=== PATIENT | female | born 1945 | race Caucasian/White ===

== ENCOUNTER 2016-10-23 15:38 | Inpatient (IN) | payer MEDICARE ==
[~2016-10-23] VITALS: Ht 165.1 cm; Wt 68.5 kg
[2016-10-23] VITALS (8 sets, daily range): BP systolic 69–101; BP diastolic 38–67; PULSE 71–77; RESP 14–22; O2SAT 92–98
[~2016-10-23 15:38] MED LIST: ALPR0.5T8 PO; CHOL200047 PO; DULO60CA42 PO; FISH1CAP16 PO; HYDR-3740 PO; PREG150C PO; PREG50CA PO; SOMA350 PO; TIZA4CAP8 PO; WARF5TAB7 PO
[2016-10-23] MEDS ORDERED: ASPI81TA3 PO (16:14)
[2016-10-23] MEDS ORDERED: PREG75CA PO (16:14)
[2016-10-23] MEDS ORDERED: DOCU240C41 PO (16:14)
[2016-10-23] MEDS ORDERED: 0.9% Sodium Chloride 1,000 ML IV ONE ×2 (16:19→16:50)
--- NOTE | 2016-10-23 16:26 | ED.REPORT ---
HPI-General Illness Date of Service Oct 23, 2016 ED Provider: Cezar Wolff MD Pt is a 71 year old female presenting to the ED after a ground level fall today. Associated symptoms include cold symptoms, numbness in her legs, change in mental status. Denies headache. She states that she was reaching for her pills when she had a syncopal episode and fell out of her bed. Her left the house at 1000 today while the pt was still in bed, then when he returned home he found the pt at 1400 lying on the floor, where she reports she had been laying for 4 hours. Pt's gave her 1 hydrocodone and tizanidine today. Pt had laminectomy August 06 L5-S1. Nursing Notes Stated Complaint: GLF Chief Complaint: Multiple Trauma/Fall Nursing Notes Reviewed: Yes Allergies: Coded Allergies: atorvastatin (Verified Adverse Reaction, Severe, 10/31/15) muscle cramps gabapentin (Verified Adverse Reaction, Severe, 10/31/15) slurred speech/stuttering Scheduled Aspirin Chew (Aspirin Chew) 81 Mg Chew 81 MG PO DAILY Cholecalciferol (Vitamin D3) (Vitamin D3) 2,000 Unit Capsule 2,000 UNIT PO DAILY Docusate Calcium (Stool Softener) 240 Mg Capsule 240 MG PO BID Duloxetine (Cymbalta) 60 Mg Capsule.dr 60 MG PO DAILY Pregabalin (Lyrica) 75 Mg Capsule 75 MG PO TID Tizanidine (Tizanidine) 4 Mg Capsule 4 MG PO BID Scheduled PRN Alprazolam (Alprazolam) 0.5 Mg Tablet 0.5 MG PO TID PRN PRN For Anxiety Carisoprodol (Carisoprodol) 350 Mg Tab 350 MG PO BID PRN PRN For Moderate Pain Hydrocodone-Acetaminophen 10-325 mg (Hydrocodone-Acetaminophen 10-325 mg) 1 Each Tablet 1 TABLET PO Q6H PRN PRN For Pain Miscellaneous Medications Fish Oil/Borage/Flax/Om3,6,9#1 (Butler 3-6-9 Complex Softgel) 400 Mg Capsule 400 MG PO General Time Seen by MD: 16:06 Chief Complaint Other (Change in mental status) Hx Obtained From: Patient, Spouse Arrived By: Ambulance Sudden in Onset?: Yes Onset Occurred: 5 - 8 hours ago Symptom Duration: Since onset Caused by: Fall on ground Severity: Current: No pain currently Severity: Maximum: No pain Recent Healthcare: No recent doctor visit, No recent hospitalization, Previous surgery Similar Sx Previous: No Past Medical History Past Medical History Notes: PCP Dr. Robles Past Medical History Fibromyalgia Spinostenosis Osteoarthritis Past Surgical History Laminectomy August 06 L5-S1 Smoking History Former Smoker Social History Other Social History: Good social support, , Local resident Ambulatory Status Independent Review of Systems Full Review of Systems Ears / Nose / Throat: Reports: Nasal congestion Respiratory: Reports: Non-productive cough Neurologic: Reports: Change LOC, Confusion, Numbness, Denies: Headache Physical Exam Vital Signs Vital Signs Date Time Temp Pulse Resp B/P Pulse Ox O2 Delivery O2 Flow Rate FiO2 10/23/16 17:38 73 16 84/38 93 Nasal Cannula 3 10/23/16 17:20 73 14 70/39 98 Nasal Cannula 3 10/23/16 15:41 36.7 71 22 69/43 92 Nasal Cannula 2 Initial VS: Reviewed Respiratory: Breath sounds normal, Clear to auscultation, No respiratory distress Abdomen / GI: Soft, Non-tender, No guarding, No rebound, No distention Extremities: Vascular intact, Neuro intact, No swelling, No tenderness Skin: Warm, Dry, No cyanosis Psychiatric: Mood/affect normal, Behavior normal, Normal thought content General/Constitutional: Awake, Alert Head / Eyes: PERRL (3mm), EOMI Eye Movement: Positive: Nystagmus horizontal ENT: Atraumatic, Airway patent Mouth: Positive: Mucous membranes dry Neck: Supple, No midline vertebral tend Cardiovascular: Heart rate NL, Regular rhythm, No gallop, No murmurs, No rubs Interpretation & Diagnostics Lab Results Interpretation Result Diagram: 10/23/16 1558 10/23/16 1558 Test 10/23/16 15:58 10/23/16 16:35 10/23/16 17:03 White Blood Count 19.4th/mm3 (3.8-10.1) Red Blood Count 4.06mil/mm3 (3.90-5.20) Hemoglobin 12.7g/dL (12.0-15.6) Hematocrit 40.0% (35.0-46.0) Mean Corpuscular Volume 98.5fL (81-100) Mean Corpuscular Hemoglobin 31.3pg (27.0-35.0) Mean Corpuscular Hemoglobin Concent 31.8% (32.0-37.0) Red Cell Distribution Width 15.4% (12.3-15.4) Platelet Count 360bil/L (150-400) Neutrophils (%) (Auto) 62% (40-74) Lymphocytes (%) (Auto) 6% (14-46) Monocytes (%) (Auto) 2% (4-12) Eosinophils (%) (Auto) 0% (0-5) Basophils (%) (Auto) 0% (0-3) Band Neutrophils % 30% (1-5) Hold Purple Top Tube Received (Received) Prothrombin Time 10.6sec (8.1-12.5) Prothromb Time International Ratio 0.99ratio Hold Blue Top Tube Received (Received) Sodium Level 139mEq/L (134-144) Potassium Level 3.6mEq/L (3.5-5.2) Chloride Level 101mEq/L (97-108) Carbon Dioxide Level 18mmol/L (18-29) Blood Urea Nitrogen 27mg/dL (8-27) Creatinine 1.47mg/dL (0.57-1.00) Estimat Glomerular Filtration Rate 50mL/min (>59) Glucose Level 114mg/dL (60-99) Calcium Level 9.7mg/dL (8.5-10.1) Magnesium Level 2.1mg/dL (1.6-2.6) Total Bilirubin 0.4mg/dL (0.0-1.2) Aspartate Amino Transf (AST/SGOT) 63U/L (0-50) Alanine Aminotransferase (ALT/SGPT) 20U/L (0-32) Alkaline Phosphatase 141U/L (25-165) Troponin T < 0.010ug/L (0.0-0.011) Pro-B-Type Natriuretic Peptide 1144pg/mL (0-301) Total Protein 7.5g/dL (6.4-8.4) Albumin 3.8g/dL (3.4-5.0) Procalcitonin 2.30ng/mL (0.00-0.08) Hold Red Top Tube Received (Received) Hold Bennett Top Tube Received (Received) Lactic Acid Level 2.9mmol/L (0.4-2.0) Urine Color Dark yellow (YELLOW) Urine Appearance Hazy (CLEAR,HAZY) Urine pH 5.5 (5.0-8.0) Urine Specific [place] 1.025 (1.003-1.035) Urine Protein 30mg/dL (NEG,TRACE) Urine Glucose (UA) Negativemg/dL (NEGATIVE) Urine Ketones Negativemg/dL (NEGATIVE) Urine Occult Blood Small (NEGATIVE) Urine Nitrite Negative (NEGATIVE) Urine Bilirubin Negative (NEGATIVE) Urine Urobilinogen Normalmg/dL (NORMAL) Urine Leukocyte Esterase Negative (NEGATIVE) Urine RBC 0-2/hpf (0-2) Urine WBC 0-5/hpf (0-5) Urine Epithelial Cells Few/hpf (NONE-MOD) Urine Crystals None seen (NONE SEEN) Urine Bacteria Few/hpf (NONE-FEW) Urine Hyaline Casts None/lpf (NONE) Urine Granular Casts Occasional (NONE SEEN) Urine Waxy Casts None seen (NONE SEEN) Urine Red Blood Cell Casts None seen (NONE SEEN) Urine White Blood Cell Casts None seen (NONE SEEN) Urine Mucus None seen (None Seen) Urine Trichomonas None seen (NONE SEEN) Urine Yeast None (NONE SEEN) Urinalysis Comment Amorphous sediment Urine Culture Reflexed Not indicated ECG Interpretation Time: 17:00 Interpreted by: ED physician Normal ECG Interpretation: Normal ECG w/ rate of... (71) X-Ray Chest Interpretation Chest Xray Interpretation: MPRESSION: 1. Confluent airspace opacities in the left mid lung and right infrahilar regions. The findings are nonspecific and the differential includes pneumonia as well as pulmonary contusion. Further evaluation may be obtained with CT if clinically indicated. Interpretation / Wet Read by: Interpret - Radiologist CT Head Interpretation IMPRESSION: 1. No acute intracranial abnormality. 2. Mild to moderate chronic white matter small vessel ischemic changes and cerebral volume loss. Dictated by: Jovi Adams M.D. on 10/23/2016 at 17:28 Study: Head CT no contrast CT C-Spine Interpretation IMPRESSION: 1. No fracture or subluxation. 2. Multilevel degenerative changes and mild anterolisthesis redemonstrated in the cervical spine as described. 3. Posterior confluent opacities within the visualized right upper lobe are nonspecific and may represent atelectasis, consolidation, or pulmonary contusion. Dictated by: Jovi Adams M.D. on 10/23/2016 at 17:30 Study type: CT no contrast Interpretation / Wet Read by: Interpret - Radiologist Procedures Central Line Placement Time: 18:56 Consent / Setup / Site Prep: Informed consent provided, Consent from spouse Skin Preparation Agent: Hibiclens - Chlorhexidine Local Anesthesia: Lidocaine 1% Side / Location / Ultrasound: Internal jugular right Catheter / Lumen / Technique: Catheter size (7 fr), Triple lumen, Seldinger technique, Good blood return, Secured w catheter device Central Line Tip Location: Cath tip good position in the SVC Post-Procedure / Complications: Dressing placed, CXR neg for pneumothorax, Tolerated procedure well Re-Eval/Medical Decision Med Decision/Clinical Course 71 year old female presenting with altered mental status and hypotension. Family reports recent cough. Fluids nsx2 L, clinically not hypovolemic, jugular veins full by US. Blood Cx obtained. IV rocephin initally, due to some concern for meiningitis. On re-eval, she is more alert, denies KAN, neck still supple, CXR shows pneumonia. IV Levaquin and Vanco given for ICU pneumonia. Central line placed and norepi drip started. Will admit to ICU on hospitalist service. Time of Eval: 17:54 Patient Status: Condition improved Re-Evaluation/Progress Note: Discussed CT results and plan for admission. Time of Eval: 17:59 Patient Status: Condition improved Re-Evaluation/Progress Note: Pt describes pain in her left leg after the fall. Right leg is sore at baseline after the laminectomy. L leg pain from fall, no shortening, rotation, tolerates PROM well. Still has no KAN. neck supple Consultation : Referral / Consult Name: Bob Cruz MD Consulted With: Hospitalist Call Returned at: 18:10 [employer] Operator: Will see patient, Agrees with plan, Accepts admit Counseled Regarding: Diagnosis, Lab results, Need for follow-up, When/why to return to ED Discharge & Departure Primary Impression: Hypotension Hypotension type: unspecified hypotension type Qualified Code: I95.9 - Hypotension, unspecified Additional Impressions: Change in mental status Altered mental status type: unspecified Qualified Code: R41.82 - Altered mental status, unspecified Sepsis Sepsis type: sepsis due to unspecified organism Qualified Code: A41.9 - Sepsis, unspecified organism Pneumonia Pneumonia type: due to unspecified organism Laterality: unspecified laterality Lung location: unspecified part of lung Qualified Code: B99.9 - Unspecified infectious disease Disposition: ADMITTED TO HOSPITAL Discharge Condition All VS Reviewed: Yes Condition: Improved Referrals: Marquita Ennis (PCP) (Family) Crit Care Except Billable Proc Time Spent: 30-74 minutes Services Performed: Patient management by me, Time spent at bedside, Reviewing test results, Reviewing imaging, Discussing patient care, Documentation in record, Time with fam/surrogate Scribe Attestation Portions of this note were transcribed by Christin Coffey. I, Dr. Wolff personally performed the history, physical exam and medical decision-making; I reviewed and confirmed the accuracy of the information in the transcribed note. Signed by : Kvng Arias, 10/23/2016 at 1815. copies to: Marquita Ennis Donald L MD Oct 23, 2016 16:26 CHRISTIN COFFEY Oct 23, 2016 16:30
[2016-10-23 16:51] LABS: Mean Corpuscular Hemoglobin 31.3 pg (27.0-35.0); Mean Corpuscular Volume 98.5 fL (81-100); Platelet Count 360 bil/L (150-400)
[2016-10-23 16:56] LABS: INR 0.99 ratio
[2016-10-23 17:13] LABS: TROPONIN T < 0.010 ug/L (0.0-0.011)
[2016-10-23 17:17] LABS: APPEARANCE,URINE HAZY (CLEAR,HAZY); COLOR,URINE DARK YELLOW (YELLOW); OCCULT BLOOD,URINE SMALL (NEGATIVE); PH,URINE 5.5 (5.0-8.0); UROBILINOGEN,URINE NORMAL (NORMAL)
[2016-10-23 17:20] LABS: BASOPHILS % (AUTO) 0 % (0-3); EOSINOPHILS % (AUTO) 0 % (0-5); MONOCYTES % (AUTO) 2 % (4-12); NEUTROPHILS % (AUTO) 62 % (40-74)
[2016-10-23 17:22] LABS: Magnesium 2.1 mg/dL (1.6-2.6)
[2016-10-23] MEDS ORDERED: cefTRIAXone Inj 2,000 MG in Dextrose 5% Minibag Plus 50 ML IV ONE (17:30)
--- NOTE | 2016-10-23 17:36 | DRSVH ---
PROCEDURE: CT BRAIN WITHOUT CONTRAST ([id number]) INDICATIONS: Altered mental status, fall TECHNIQUE: Noncontrast 4.5 mm thick angled axial sections acquired from the foramen magnum to the vertex, with c oronal reformats. COMPARISON: None. FINDINGS: Image quality: Excellent. CSF spaces: Basal cisterns are patent. No extra-axial fluid collections. The ventricles are symmet юлия in size and shape. There is dvbh-no-[id number] cerebral volume loss, with resultant ventricular an d sulcal prominence. Brain: No intracranial hemorrhage, mass, or mass effect. There are subcortical, periventricular and deep white matter hypodensities consistent with anug-yj-holmgoni chronic small vessel ischemic duarte es. There is intracranial internal carotid artery atherosclerosis. Skull and face: Calvarium and visualized facial bones appear intact, without suspicious lesions. Sinuses: Visualized sinuses and mastoids are clear. IMPRESSION: 1. No acute intracranial abnormality. 2. Mild to moderate chronic white matter small vessel ischemic changes and cerebral volume loss. Dictated by: Jovi Adams M.D. on 10/23/2016 at 17:28 Approved by: Jovi Adams M.D. on 10/23/2016 at 17:30
--- NOTE | 2016-10-23 17:47 | DRSVH ---
PROCEDURE: CT CERVICAL SPINE WITHOUT CONTRAST ([id number]) INDICATIONS: Altered mental status, fall. TECHNIQUE: Noncontrast 3 mm thick sections acquired from the skull base to the T4 level. Sagittal and coronal r eformats were then constructed. For radiation dose reduction, the following was used: automated exp osure control, adjustment of mA and/or kV according to patient size. COMPARISON: [facility], CT, CHEST W/O CONTRAST, 01/12/2013, 12:52. FINDINGS: Image quality: Excellent. Bones: No fractures or dislocations. There is minimal anterolisthesis at C4-C5 and T5-T6 which appe ar unchanged. There is multilevel disc space narrowing including moderate cerebral narrowing at C6-C 7 redemonstrated. There is mild multilevel uncovertebral joint arthropathy. Facet arthropathy is al so demonstrated in the mid and lower cervical spine. Visualized superior ribs are intact. Soft tissues: Prevertebral soft tissues are normal in thickness. No paravertebral hematomas. No ap ical pneumothoraces. Within the visualized right lobe, there are posterior confluent opacities which may represent atelectasis, consolidation, or contusion. IMPRESSION: 1. No fracture or subluxation. 2. Multilevel degenerative changes and mild anterolisthesis redemonstrated in the cervical spine as described. 3. Posterior confluent opacities within the visualized right upper lobe are nonspecific and may repr esent atelectasis, consolidation, or pulmonary contusion. Dictated by: Jovi Adams M.D. on 10/23/2016 at 17:30 Approved by: Jovi Adams M.D. on 10/23/2016 at 17:41
[2016-10-23] MEDS ORDERED: levoFLOXacin Inj 750 MG in IV Premix 1 EACH IV ONE (18:10)
--- NOTE | 2016-10-23 18:57 | DRSVH ---
PROCEDURE: X-RAY CHEST ONE VIEW, PORTABLE ([id number]) INDICATIONS: Hypotension and cough. Status post fall. TECHNIQUE: One view of the chest was acquired. COMPARISON: None. FINDINGS: Surgical changes and devices: None. Lungs and pleura: No pleural effusions or pneumothorax. There are low lung volumes. There are conf luent opacities between the left midlung zone. There are also increased right infrahilar opacities. Mediastinum: Mediastinal contours appear prominent likely due to lobe lines and portable technique. Heart size is at upper limits of normal. Bones and chest wall: No suspicious bony lesions. Overlying soft tissues appear unremarkable. IMPRESSION: 1. Confluent airspace opacities in the left mid lung and right infrahilar regions. The findings are nonspecific and the differential includes pneumonia as well as pulmonary contusion. Further evaluat ion may be obtained with CT if clinically indicated. Dictated by: Jovi Adams M.D. on 10/23/2016 at 18:49 Approved by: Jovi Adams M.D. on 10/23/2016 at 18:51
--- NOTE | 2016-10-23 19:17 | DRSVH ---
PROCEDURE: X-RAY CHEST ONE VIEW, PORTABLE ([id number]) INDICATIONS: Central line TECHNIQUE: One view of the chest was acquired. COMPARISON: [facility], CR, XR CHEST 1VW (PORTABLE), 10/23/2016, 17:11. FINDINGS: Surgical changes and devices: There is a new right internal jugular central venous catheter with the tip extending into the superior vena cava. Lungs and pleura: No pleural effusions or pneumothorax. There is improved aeration with persistent confluent left peripheral air space opacities. There is pulmonary vascular prominence suggesting mil d edema. Linear left basilar opacities consistent with atelectasis or scarring. Mediastinum: Mediastinal contours appear unchanged. Heart size is normal. Bones and chest wall: No suspicious bony lesions. Overlying soft tissues appear unremarkable. IMPRESSION: 1. No evidence of pneumothorax. 2. Persistent confluent left basilar opacities peripherally are nonspecific but may represent pneumo joss or pulmonary contusion. 3. Pulmonary vascular prominence suggesting mild edema. Dictated by: Jovi Adams M.D. on 10/23/2016 at 19:09 Approved by: Jovi Adams M.D. on 10/23/2016 at 19:11
[2016-10-23] MEDS: Norepineph 8,000 mCg/250 mL NS 8,000 MCG in IV Premix 1 EACH IV SCH (19:32)
[2016-10-23] MEDS: 0.9% Sodium Chloride 1,000 ML IV SCH (19:40)
[2016-10-23] MEDS ORDERED: LORazepam 0.5 mg Tablet PO ONE (19:40)
[2016-10-23] MEDS ORDERED: Alum-Mag Hydrox-Simeth 30 mL Suspension PO PRN (19:40)
[2016-10-23] MEDS ORDERED: DOCU250C2 PO (19:56)
[2016-10-23] MEDS ORDERED: CHOL10008 PO (19:56)
[2016-10-23] MEDS ORDERED: TOPI-59 PO (19:56)
--- NOTE | 2016-10-23 20:55 | PCM.HPMED ---
Subjective Date of Service Oct 23, 2016 Primary Provider: Admitting Physician: Bob Cruz MD Primary Care Physician: Marquita Ennis Attending Physician: Bob Cruz MD Admit Status: From the Emergency Department, Full Admit, Critical Care Chief Complaint: Syncope, pna and sepsis History of Present Illness: 71 female ill for several days with a cough, productive as well as progressive anorexia and weakness. She got up from bed and fell on floor this AM. Found 4 hours later. No recall of event. EMS brought her to ED, where she was hypotensive and received 2 L NS with persistent hypotension. A right IJ central line was placed and norepinephrine was started. MAP is now 65. No nausea, vomiting, diarrhea. No abdomen pauin. No dyspnea or chest pain. No fevers, chills or rigors. She denies fevers or chills, no rigors. No recent dyspnea, pleuritic pain, hemoptysis, or sustained chest pain. No abdomen pain. Review of Systems: All else reviewed and negative except as noted in H and P. Allergies Coded Allergies: atorvastatin (Verified Adverse Reaction, Severe, 10/23/16) muscle cramps gabapentin (Verified Adverse Reaction, Severe, 10/23/16) slurred speech/stuttering Home Medications Aspirin Chew (Aspirin Chew) 81 Mg Chew 81 MG PO DAILY Cholecalciferol (Vitamin D3) (Vitamin D3) 2,000 Unit Capsule 2,000 UNIT PO DAILY Docusate Calcium (Stool Softener) 240 Mg Capsule 240 MG PO BID Duloxetine (Cymbalta) 60 Mg Capsule.dr 60 MG PO DAILY Pregabalin (Lyrica) 75 Mg Capsule 75 MG PO TID Tizanidine (Tizanidine) 4 Mg Capsule 4 MG PO BID Scheduled PRN Alprazolam (Alprazolam) 0.5 Mg Tablet 0.5 MG PO TID PRN PRN For Anxiety Carisoprodol (Carisoprodol) 350 Mg Tab 350 MG PO BID PRN PRN For Moderate Pain Hydrocodone-Acetaminophen 10-325 mg (Hydrocodone-Acetaminophen 10-325 mg) 1 Each Tablet 1 TABLET PO Q6H PRN PRN For Pain PMH 1. Fibromyalgia 2. Chronic pain syndrome 3. Anxiety Family History Negative for fibromyalgia Social History Hx Alcohol Use: Yes ("a glass of wine once a month") Hx Substance Use: No Hx Tobacco Use: No Smoking Status: Former Smoker Living Arrangement: with Family Exam Vital Signs Vital Sign - Last Date Time Temp Pulse Resp B/P Pulse Ox O2 Delivery O2 Flow Rate FiO2 10/23/16 20:09 73 17 101/67 94 Nasal Cannula 3 10/23/16 15:41 36.7 Exam alert and oriented by 3, no distress, fluent speech Normal skull, nose and ears Normal mouth, no droop. Anicteric sclera, normal pupils. Lungs clear Heart regular Normal neck, thyroid and no adenopathy Abdomen soft, NT. No leg edema No skin rash, ecchymosis Normal joints Normal muscle strength Dry mouth. Lab and Diagnostics Result Diagram: 10/23/16 1558 10/23/16 1558 X-Rays, CTs and MRIs CXR : L base pna Brain CT neg C spine CT neg Assessment & Plan 1. CAP (pna), POA. Cefepime until off NE, then ceftriaxone and azithro. 2. Septic shock, POA. Protocol with IVF, serial lactic acid, and norepinephrine to keep MAP above 65. 3. GI and DVT prophylaxis (critically ill) 4. Fibromyalgia, POA. resume usual meds in AM when improved. Full code, inpt status, over 2 nights anticipated. Pain Evaluation: Adequate Pain Control Resuscitation Status: CPR: Attempt Resuscitation Time spent 60 min Bob Cruz MD Oct 23, 2016 20:55
[2016-10-24] VITALS (7 sets, daily range): BP systolic 108–137; BP diastolic 43–95; PULSE 72–92; RESP 15–25; O2SAT 96–98
[2016-10-24] MEDS: 0.9% Sodium Chloride 1,000 ML IV SCH ×4 (01:04→17:40)
--- NOTE | 2016-10-24 05:34 | NUR ---
admit note: Pt received into room 2019 at 2000 per cart from ED companied by family. Pt was alert and orientated to person,place and time. denies any pain on O2 at 4L/M per NC. Pt slide over to bed with use of slide board and assist x4. Pt has small bruise to right lateral hip and dime size abraision to right knee. Wilde in place and rt IJ intact. Levophed infusing at .05 mcg/kg/min. Monitor shows sinus rhythm in 70-80s.
--- NOTE | 2016-10-24 05:52 | NUR ---
sedation/agitation: Pt was agitated at start of shift order was obtained for 1mg IV ativan. Pt calmed down and was resting well through out the night until 0500 after pt received bath and having BM. Pt become tachycardic and restless.
[2016-10-24] MEDS: cefTRIAXone Inj 2,000 MG in Dextrose 5% Minibag Plus 50 ML IV SCH (09:05)
[2016-10-24] MEDS ORDERED: oxyCODONE-Acetamin 5-325 mg Tablet PO PRN (11:20)
[2016-10-24] MEDS: Ondansetron 2 mg/mL 2 mL Inj IVPUSH PRN (11:37)
--- NOTE | 2016-10-24 12:43 | NUR ---
Pt nauseated this am Pt has had 2 episodes of diarrhoea. She also complained of nausea, and had a large emisis at approx 1100hrs. Colace held due to diarrhoea and Vit D held as pt is complaining of nausea.
[2016-10-24] MEDS ORDERED: Sodium Chloride LOK Flush 10 mL Syringe IVFLUSH PRN ×2 (14:50)
--- NOTE | 2016-10-24 15:44 | PCM.PNMED ---
Subjective Date of Service Oct 24, 2016 Subjective 71-year-old woman with several days of lower respiratory tract symptoms presents with pneumonia and rhabdomyolysis secondary to syncope. She reports feeling much better today. Family notes that her mental status is not back to normal. Continues to have mild to moderate cough with minimal phlegm. Appetite is good. She has not ambulated. Exam Vital Signs Vital Sign - Last Date Time Temp Pulse Resp B/P Pulse Ox O2 Delivery O2 Flow Rate FiO2 10/24/16 11:30 Supplement Oxygen 10/24/16 11:30 37.1 92 25 117/57 97 4.00 Intake and Output 10/23/16 10/23/16 10/24/16 Cumulative From/Thru 15:00 23:00 07:00 10/23/16 15:41 - 10/24/16 05:32 Intake Total 2000 ml 2848 ml 4848 ml Output Total 1100 ml 1100 ml Balance 2000 ml 1748 ml 3748 ml Intake Oral 500 ml 500 ml IV Total 2000 ml 2348 ml 4348 ml Output Urine Total 1100 ml 1100 ml Exam General: Elderly woman sitting in bed, no acute distress HEENT: sclerae anicteric, oral mucosa moist Neck: no JVD Chest: Bibasilar crackles L>R Cardiac: S1S2, no murmur Abdomen: BS normal, non-tender Extremities: No edema Neuro: A&O, cranial nerves symmetric, motor tone, coordination normal IVs and Medications Medications Reviewed: Medications were reviewed in detail Lab and Diagnostics Procalcitonin 2.3 Lactic acid 2.9, 0.9 CPK 11,693 Result Diagram: 10/23/16 1558 10/24/16 0830 X-Rays, CTs and MRIs PROCEDURE: X-RAY CHEST ONE VIEW, PORTABLE ([id number]) IMPRESSION: 1. Confluent airspace opacities in the left mid lung and right infrahilar regions. The findings are nonspecific and the differential includes pneumonia as well as pulmonary contusion. Further evaluation may be obtained with CT if clinically indicated. Dictated by: Jovi Adams M.D. on 10/23/2016 at 18:49 PROCEDURE: CT CERVICAL SPINE WITHOUT CONTRAST ([id number]) IMPRESSION 1. No fracture or subluxation. 2. Multilevel degenerative changes and mild anterolisthesis redemonstrated in the cervical spine as described. 3. Posterior confluent opacities within the visualized right upper lobe are nonspecific and may represent atelectasis, consolidation, or pulmonary contusion. Dictated by: Jovi Adams M.D. on 10/23/2016 at 17:30 PROCEDURE: CT BRAIN WITHOUT CONTRAST ([id number]) IMPRESSION: 1. No acute intracranial abnormality. 2. Mild to moderate chronic white matter small vessel ischemic changes and cerebral volume loss. Dictated by: Jovi Adams M.D. on 10/23/2016 at 17:28 PROCEDURE: X-RAY CHEST ONE VIEW, PORTABLE ([id number]) IMPRESSION: 1. No evidence of pneumothorax. 2. Persistent confluent left basilar opacities peripherally are nonspecific but may represent pneumonia or pulmonary contusion. 3. Pulmonary vascular prominence suggesting mild edema. Dictated by: Jovi Adams M.D. on 10/23/2016 at 19:09 . Assessment & Plan 71-year-old woman with several days of fever dyspnea anorexia and cough complicated by syncopal episode with approximately 4 hours of immobilization on floor. #. Sepsis, acute. Patient presented with BP 69/43, RR 22, WBC 19 K with bandemia, O2 saturation 92% on 2 L. Elevated lactate 2.9. She experienced syncope likely due to dehydration and orthostatic hypotension. Pressures responded to fluid resuscitation. Local infection is pneumonia. - Aggressive fluid resuscitation with mean arterial pressure greater than 65 mmHg - Monitor urinary output to maintain greater than 0.5 ML/KG/HR. #. Community-acquired pneumonia, acute. Chest x-ray compatible with bilateral pneumonia, possibly pulmonary edema. Overall symptoms appear to be infectious with profound leukocytosis, bandemia and elevated procalcitonin. Respiratory viral panel is negative. MRSA swab is negative. - Ceftriaxone plus levofloxacin - Oxygen as needed - IV hydration, and push by mouth hydration #. Acute diastolic congestive heart failure. ProBNP is 1144 on admission. Chest x-ray also compatible with bilateral pulmonary congestion. Likely diastolic CHF due to stress of respiratory infection. - Follow clinically at present without diuretics during rehydration - Controlled blood pressure maintained good oxygenation #t. Acute kidney injury. Likely related to dehydration SG 1.025. - Follow with hydration #. Rhabdomyolysis, acute. X-ray 4 hours immobilized on floor. Elevated CPK associated with mild right leg pain. Urinary dipstick is small for occult blood. Moderate acute kidney injury, but likely related to dehydration rather than myoglobin. - Maintain good IV and oral hydration. - Follow daily BMP - Physical therapy consult to ambulate patient. #. Chronic lower back pain, opioid dependent. - Continue oral oxycodone, parenteral opioid. - Continue her duloxetine, tizanidine and pregabalin; monitor for signs of polypharmacy and toxic encephalopathy #. Anxiety disorder, chronic. - Continue her usual 0.5 mg 3 times a day alprazolam. Venous thromboembolism: Subcutaneous Lovenox Pain Evaluation: Adequate Pain Control GI Prophylaxis: Not indicated VTE Prophylaxis: Sub-Q Enoxaparin VTE Mechanical Devices: Intermittant Pneumatic CD Resuscitation Status: CPR: Attempt Resuscitation Time spent 40 minutes aSrmad Solano MD Oct 24, 2016 15:44
[2016-10-24] MEDS ORDERED: KCl 40 mEq/100 mL Premix (K 3 - 3.7 & Creat < 2) IV ONE (18:20)
[2016-10-24] MEDS: Norepineph 8,000 mCg/250 mL NS 8,000 MCG in IV Premix 1 EACH IV SCH (18:55)
--- NOTE | 2016-10-24 18:55 | NUR ---
P: Resp, Hemodynamics, Neuro, GI, Skin,Social I,E: Pt remains on 4l NC and sats in the high 90's. She has a moist productive cough and sputum was sent this am. Pt BP has been stable today, with sys BP's in the 110's to 120's. Pt has been in SR 80's to 90's. UOP brisk via valladares cath. Pt has not had any further episodes of diarrhoea this afternoon. K rider is hanging for K 3.3. Pt has bruising on her right hip from her fall at home and she has a small abrasion on her right knee that is healing well. Pt is on fall precautions here and has been instructed multiple times to use the call light for assistance. She has been doing that this afternoon, but she does remain a little confused at times and may forget overnight. Naga is on the bed and working. Pt continues to be a little confused about things but she acknowledges this and is usually able to identify her errors tonight. Family have been here on and off today and are good support.
[2016-10-24] MEDS: ALPRAZolam 0.5 mg Tablet PO PRN (21:05)
[2016-10-25] VITALS (8 sets, daily range): BP systolic 104–150; BP diastolic 50–82; PULSE 70–95; RESP 19–27; O2SAT 92–97
[2016-10-25] MEDS: 0.9% Sodium Chloride 1,000 ML IV SCH ×4 (03:16→20:48)
[2016-10-25 04:22] LABS: Mean Corpuscular Hemoglobin 29.8 pg (27.0-35.0); Mean Corpuscular Volume 99.3 fL (81-100)
--- NOTE | 2016-10-25 04:54 | NUR ---
Respiratory Pt on 3L NC at beginning of shift, able to wean from 4L NC with SpO2 in high 90s. Pt instructed to keep oxygen and oximeter on for nighttime to allow continued weaning and monitoring as tolerated. However, pt falls asleep repeatedly pulling off oxygen and oximeter; when reassessed, SpO2 80% on RA. NC reapplied and returned to 4L NC to compensate for periods without oxygen. Pt sleeping throughout shift, no c/o pain or dyspnea. AOx3 but has occasional rambling speech and disorientation. Participatory in care and follows commands. VSS. Tele SR 70s.
[2016-10-25] MEDS: cefTRIAXone Inj 2,000 MG in Dextrose 5% Minibag Plus 50 ML IV SCH (08:35)
[2016-10-25] MEDS: DULoxetine 30 mg DR Capsule PO SCH (08:43)
--- NOTE | 2016-10-25 15:45 | NUR ---
Social Work-initial assessment: Data:See initial assessment. Pt is a 71 y/o female who was admitted on 10/23/16 for Sepsis and Pneumonia per H&P. Pt's insurance is [employer] and PCP is Marquita Ennis MD. EMR Reviewed. Pt's readmission score is 4-high risk. SW met with pt to discuss discharge planning, SW role explained and initial assessment complete. Pt is alert and oriented x3. Pt resides at home with spouse/NOK, Joseph Prater [phone], in a single level home with four steps to enter where pt remains independent with basic ADLs. Pt ambulates independently at baseline and does drive if needed. Pt has no HH or SNF history. Pt has completed DPOA/ advanced directive and SW requested a copy. Pt has no jail care or VA benefits. SW discuss HH services and patient interested in HH if needed after discharge. SW provided patient with a choice list, but patient does not have a HH preference if HH is needed. PT evaluation ordered. Pt's family to provide transport home at discharge. SW provided phone number and plan on white board in room. SW will continue to follow. Plan: Pt to likely discharge home with hh if needed. PT evaluation is pending. Pt's family is supportive. SW will continue to follow. Dimitris Becerra LMSW, RYAN Addendum: 10/25/16 at 1557 by DIMITRIS BECERRA SS Amended: Links added.
[2016-10-25] MEDS: Norepineph 8,000 mCg/250 mL NS 8,000 MCG in IV Premix 1 EACH IV SCH (16:16)
--- NOTE | 2016-10-25 16:33 | PCM.PNMED ---
Subjective Date of Service Oct 25, 2016 Subjective 71-year-old woman with several days of lower respiratory tract symptoms presents with pneumonia and rhabdomyolysis secondary to syncope. She reports feeling much better today. Family notes that her mental status is not back to normal. Continues to have moderate cough with phlegm. Appetite is good. She has not ambulated. Continues to feel bruised on her right hip and thigh. Exam Vital Signs Vital Sign - Last Date Time Temp Pulse Resp B/P Pulse Ox O2 Delivery O2 Flow Rate FiO2 10/25/16 16:19 83 24 104/56 95 Nasal Cannula 3.00 10/25/16 08:32 37.1 Intake and Output 10/24/16 10/24/16 10/25/16 Cumulative From/Thru 15:00 23:00 07:00 10/23/16 15:41 - 10/25/16 06:45 Intake Total 2600 ml 1727 ml 9175 ml Output Total 2100 ml 800 ml 4000 ml Balance 500 ml 927 ml 5175 ml Intake Oral 500 ml 400 ml 1400 ml IV Total 2100 ml 1327 ml 7775 ml Output Urine Total 2100 ml 800 ml 4000 ml # Bowel Movements 2 2 Exam General: Elderly woman sitting in bed, coughing frequently HEENT: sclerae anicteric, oral mucosa moist Neck: no JVD Chest: Bibasilar crackles Cardiac: S1S2, no murmur Abdomen: BS normal, non-tender Extremities: No edema Neuro: A&O, cranial nerves symmetric, motor tone, coordination normal IVs and Medications Medications Reviewed: Medications were reviewed in detail Lab and Diagnostics Result Diagram: 10/25/16 04110/25/16 0410 Microbiology Respiratory viral panel negative Sputum no growth blood cultures no growth Pneumococcus antigen negative X-Rays, CTs and MRIs PROCEDURE: X-RAY CHEST ONE VIEW, PORTABLE ([id number]) IMPRESSION: 1. Confluent airspace opacities in the left mid lung and right infrahilar regions. The findings are nonspecific and the differential includes pneumonia as well as pulmonary contusion. Further evaluation may be obtained with CT if clinically indicated. Dictated by: Jovi Adams M.D. on 10/23/2016 at 18:49 PROCEDURE: CT CERVICAL SPINE WITHOUT CONTRAST ([id number]) IMPRESSION 1. No fracture or subluxation. 2. Multilevel degenerative changes and mild anterolisthesis redemonstrated in the cervical spine as described. 3. Posterior confluent opacities within the visualized right upper lobe are nonspecific and may represent atelectasis, consolidation, or pulmonary contusion. Dictated by: Jovi Adams M.D. on 10/23/2016 at 17:30 PROCEDURE: CT BRAIN WITHOUT CONTRAST ([id number]) IMPRESSION: 1. No acute intracranial abnormality. 2. Mild to moderate chronic white matter small vessel ischemic changes and cerebral volume loss. Dictated by: Jovi Adams M.D. on 10/23/2016 at 17:28 PROCEDURE: X-RAY CHEST ONE VIEW, PORTABLE ([id number]) IMPRESSION: 1. No evidence of pneumothorax. 2. Persistent confluent left basilar opacities peripherally are nonspecific but may represent pneumonia or pulmonary contusion. 3. Pulmonary vascular prominence suggesting mild edema. Dictated by: Jovi Adams M.D. on 10/23/2016 at 19:09 . Assessment & Plan 71-year-old woman with several days of fever dyspnea anorexia and cough complicated by syncopal episode with approximately 4 hours of immobilization on floor. #. Sepsis, acute. Patient presented with BP 69/43, RR 22, WBC 19 K with bandemia, O2 saturation 92% on 2 L. Elevated lactate 2.9. She experienced syncope likely due to dehydration and orthostatic hypotension. Pressures responded to fluid resuscitation. Local infection is pneumonia. She received Aggressive fluid resuscitation with mean arterial pressure greater than 65 mmHg. - Reduce IV fluids and switch to oral hydration - Monitor urinary output to maintain greater than 0.5 ML/KG/HR. #. Community-acquired pneumonia, acute. Chest x-ray compatible with bilateral pneumonia, possibly pulmonary edema. Overall symptoms appear to be infectious with profound leukocytosis, bandemia and elevated procalcitonin. Respiratory viral panel is negative. MRSA swab is negative. She continues to require 3 L nasal cannula oxygen with O2 sat 92-95% - Ceftriaxone plus azithromycin - Oxygen as needed - IV hydration, and push by mouth hydration #. Acute diastolic congestive heart failure. ProBNP is 1144 on admission. Chest x-ray also compatible with bilateral pulmonary congestion. Likely diastolic CHF due to stress of respiratory infection. - Follow clinically at present without diuretics during rehydration - Controlled blood pressure maintained good oxygenation #t. Acute kidney injury. Serum creatinine 1.47 on admission has declined to 0.79 within 2 days. Likely related to dehydration SG 1.025. No signs of rhabdomyolysis could be injury. - Follow IMP occasionally #. Rhabdomyolysis, acute. X-ray 4 hours immobilized on floor. Elevated CPK associated with mild right leg pain. Urinary dipstick is small for occult blood. Moderate acute kidney injury, but likely related to dehydration rather than myoglobin. - Maintain good IV and oral hydration. - Follow daily BMP - Physical therapy consult to ambulate patient. #. Chronic lower back pain, opioid dependent. - Continue oral oxycodone, parenteral opioid. - Continue her duloxetine, tizanidine and pregabalin; monitor for signs of polypharmacy and toxic encephalopathy #. Anxiety disorder, chronic. - Continue her usual 0.5 mg 3 times a day alprazolam. Venous thromboembolism: Subcutaneous Lovenox Disposition: When O2 requirement is essentially normal we will switch to by mouth antibiotics and discharge to home. Likely 10/27, possibly 10/26 GI Prophylaxis: Not indicated VTE Prophylaxis: Sub-Q Enoxaparin VTE Mechanical Devices: Intermittant Pneumatic CD Resuscitation Status: CPR: Attempt Resuscitation Time spent 35 minutes Sarmad Solano MD Oct 25, 2016 16:33
--- NOTE | 2016-10-25 19:13 | NUR ---
Hypotension/diarrhea Patient's BP 96/53 and then later 98/49. Pt states slight headache and dizziness but stated "I'm just very tired." A&O. Follows commands. Pt rested and BP 104/56 asymptomatic. Pt had 1 loose incontinent BM this shift.
[2016-10-25] MEDS: ALPRAZolam 0.5 mg Tablet PO PRN (20:47)
[2016-10-26] VITALS (9 sets, daily range): BP systolic 114–163; BP diastolic 59–95; PULSE 84–92; RESP 16–24; O2SAT 92–97
[2016-10-26] MEDS: 0.9% Sodium Chloride 1,000 ML IV SCH (03:44)
[2016-10-26 04:05] LABS: Mean Corpuscular Hemoglobin 30.2 pg (27.0-35.0); Mean Corpuscular Volume 98.7 fL (81-100)
--- NOTE | 2016-10-26 05:31 | NUR ---
Respiratory Pt on 4L NC at HS, SpO2 94-96%, denies dyspnea. While at rest, attempted to wean pt to 3L NC; SpO2 90-91%. Returned to 4L NC, SpO2 approx. 92%. VSS. Tele SR 90s.
[2016-10-26] MEDS ORDERED: KCl 40 mEq/100 mL Premix (K 3 - 3.7 & Creat < 2) IV ONE (05:40)
[2016-10-26] MEDS: cefTRIAXone Inj 2,000 MG in Dextrose 5% Minibag Plus 50 ML IV SCH (07:24)
[2016-10-26] MEDS: DULoxetine 30 mg DR Capsule PO SCH (07:36)
[2016-10-26] MEDS: Potassium Chloride 20 mEq SR Tablet PO SCH ×2 (09:21→19:48)
[2016-10-26] MEDS: Lactobacillus Rhamnosus 10 Bil Unit Capsule PO SCH ×2 (12:09→18:04)
--- NOTE | 2016-10-26 13:11 | NUR ---
Evaluation completed. Please go to "Notes" then click on "Assessments and Notes" (bottom left corner of screen). Then select appropriate discipline tab on top of screen.
--- NOTE | 2016-10-26 15:07 | NUR ---
Temp/Activity Patient had mild temp of 38.7 and complaining of chills and fatigue. Tylenol given with good effect, temp down to 37.3 and patient resting with eyes closed in bed.
--- NOTE | 2016-10-26 16:03 | PCM.PNMED ---
Subjective Date of Service Oct 26, 2016 Subjective 71-year-old woman with several days of lower respiratory tract symptoms presents with pneumonia and rhabdomyolysis secondary to syncope. She reports feeling much better today. Family notes that her mental status is not back to normal. Low-grade fever last night. Continues to have moderate cough with minimal phlegm. She feels weak. Appetite is poor. She has not ambulated. Continues to feel bruised on her right hip and thigh, but improving. Exam Vital Signs Vital Sign - Last Date Time Temp Pulse Resp B/P Pulse Ox O2 Delivery O2 Flow Rate FiO2 10/26/16 15:18 37.1 85 16 148/70 95 Nasal Cannula 3.00 Intake and Output 10/25/16 10/25/16 10/26/16 Cumulative From/Thru 15:00 23:00 07:00 10/23/16 15:41 - 10/26/16 05:58 Intake Total 2577 ml 1687 ml 21537 ml Output Total 1200 ml 1450 ml 6650 ml Balance 1377 ml 237 ml 6789 ml Intake Oral 1100 ml 237 ml 2737 ml IV Total 1477 ml 1450 ml 79380 ml Output Urine Total 1200 ml 1450 ml 6650 ml # Bowel Movements 2 Exam General: Elderly woman sitting in bed, coughing occasionally HEENT: sclerae anicteric, oral mucosa moist Neck: no JVD Chest: Bibasilar crackles, no dullness Cardiac: S1S2, regular Abdomen: BS normal, non-tender Extremities: Tr+ edema Neuro: A&O, cranial nerves symmetric, motor tone, coordination normal IVs and Medications Medications Reviewed: Medications were reviewed in detail Lab and Diagnostics Result Diagram: 10/26/16 0355 10/26/16 1000 Microbiology Respiratory viral panel negative Sputum no growth blood cultures no growth Pneumococcus antigen negative X-Rays, CTs and MRIs PROCEDURE: X-RAY CHEST ONE VIEW, PORTABLE ([id number]) IMPRESSION: 1. Confluent airspace opacities in the left mid lung and right infrahilar regions. The findings are nonspecific and the differential includes pneumonia as well as pulmonary contusion. Further evaluation may be obtained with CT if clinically indicated. Dictated by: Jovi Adams M.D. on 10/23/2016 at 18:49 PROCEDURE: CT CERVICAL SPINE WITHOUT CONTRAST ([id number]) IMPRESSION 1. No fracture or subluxation. 2. Multilevel degenerative changes and mild anterolisthesis redemonstrated in the cervical spine as described. 3. Posterior confluent opacities within the visualized right upper lobe are nonspecific and may represent atelectasis, consolidation, or pulmonary contusion. Dictated by: Jovi Adams M.D. on 10/23/2016 at 17:30 PROCEDURE: CT BRAIN WITHOUT CONTRAST ([id number]) IMPRESSION: 1. No acute intracranial abnormality. 2. Mild to moderate chronic white matter small vessel ischemic changes and cerebral volume loss. Dictated by: Jovi Adams M.D. on 10/23/2016 at 17:28 PROCEDURE: X-RAY CHEST ONE VIEW, PORTABLE ([id number]) IMPRESSION: 1. No evidence of pneumothorax. 2. Persistent confluent left basilar opacities peripherally are nonspecific but may represent pneumonia or pulmonary contusion. 3. Pulmonary vascular prominence suggesting mild edema. Dictated by: Jovi Adams M.D. on 10/23/2016 at 19:09 . Assessment & Plan 71-year-old woman with several days of fever dyspnea anorexia and cough complicated by syncopal episode with approximately 4 hours of immobilization on floor. Now day #3 of antibiotics for community-acquired pneumonia. #. Sepsis, acute. Patient presented with BP 69/43, RR 22, WBC 19 K with bandemia, O2 saturation 92% on 2 L. Elevated lactate 2.9. She experienced syncope likely due to dehydration and orthostatic hypotension. Pressures responded to fluid resuscitation. Local infection is pneumonia. She received Aggressive fluid resuscitation with mean arterial pressure greater than 65 mmHg. fever leukocytosis gradually improving. - Reduce IV fluids, and switch to oral hydration - Monitor urinary output to maintain greater than 0.5 ML/KG/HR. #. Community-acquired pneumonia, acute. Chest x-ray compatible with bilateral pneumonia, possibly pulmonary edema. Overall symptoms appear to be infectious with profound leukocytosis, bandemia and elevated procalcitonin. Respiratory viral panel is negative. MRSA swab is negative. She continues to require 3 L nasal cannula oxygen with O2 sat 92-95% - Ceftriaxone plus azithromycin x 5 days - Titrate Oxygen off , as tolerated - IV hydration, and push by mouth hydration - Mobilized patient to enhance pulmonary toilet #. Acute diastolic congestive heart failure. ProBNP is 1144 on admission. Chest x-ray also compatible with bilateral pulmonary congestion. Likely diastolic CHF due to stress of respiratory infection. - Reduce IV fluids and Initiate oral Lasix diuresis now that she is in recovery phase - Control blood pressure - maintained good oxygenation #t. Acute kidney injury. Serum creatinine 1.47 on admission has declined to 0.79 within 2 days. Likely related to dehydration SG 1.025. No signs of rhabdomyolysis renal injury. - Follow IMP occasionally #. Rhabdomyolysis, acute. X-ray 4 hours immobilized on floor. Elevated CPK associated with mild right leg pain. Urinary dipstick is small for occult blood. Moderate acute kidney injury, but likely related to dehydration rather than myoglobin. - Maintain good IV and oral hydration. - Follow daily BMP - Physical therapy consult to ambulate patient. #. Chronic lower back pain, opioid dependent. Also fibromyalgia. - Continue oral oxycodone, parenteral opioid. - Continue her duloxetine, tizanidine and pregabalin; monitor for signs of polypharmacy and toxic encephalopathy #. Anxiety disorder, chronic. - Continue her usual 0.5 mg 3 times a day alprazolam. Venous thromboembolism: Subcutaneous Lovenox Disposition: When O2 requirement is essentially normal we will switch to by mouth antibiotics and discharge to home. Likely 4/2, possibly 4/1 GI Prophylaxis: Not indicated VTE Prophylaxis: Sub-Q Enoxaparin VTE Mechanical Devices: Intermittant Pneumatic CD Resuscitation Status: CPR: Attempt Resuscitation Time spent 35 minutes Sarmad Solano MD Oct 26, 2016 16:03
[2016-10-26] MEDS: Norepineph 8,000 mCg/250 mL NS 8,000 MCG in IV Premix 1 EACH IV SCH (18:55)
--- NOTE | 2016-10-26 19:38 | DRSVH ---
PROCEDURE: CT CHEST WITH CONTRAST ([id number]) INDICATIONS: pneumonia, recurrent fever TECHNIQUE: After the administration of intravenous contrast, 5 mm thick sections acquired from the pulmonary api ulisses to the posterior costophrenic angles. 7 mm thick coronal and sagittal MIP reformats were acquire d. For radiation dose reduction, the following was used: automated exposure control, adjustment of mA and/or kV according to patient size. COMPARISON: [facility], CR, XR CHEST 1VW (PORTABLE), 10/23/2016, 18:48. FINDINGS: Image quality: Excellent. Lungs and pleura: Mild bilateral pleural effusions are present with superimposed consolidations. In a ddition, there is a probably peripheral consolidative opacity within the mid and inferior aspect of t he left upper lobe as well as near the major fissure on the right. Mediastinum: Heart size is normal. No pericardial effusion. No mediastinal or hilar adenopathy by size criteria. Thoracic aorta and central pulmonary arteries are normal in size. Esophagus demonstr ates prominent distal thickening with hiatal hernia. This could be related to esophagitis and clinica l correlation is recommended. Bones and chest wall: No suspicious bony lesions. No vertebral body compression fractures. No axil carlos or supraclavicular adenopathy by size criteria. Thyroid gland is unremarkable. Abdomen: There is an unchanged appearance of a left adrenal mass as well as right renal cyst. Otherwi se, visualized upper abdominal solid organs appear normal. Upper abdominal bowel loops are normal in caliber. IMPRESSION: 1. Mild bilateral pleural effusions with superimposed consolidations as well scattered isolated conso lidative opacities as above. Findings appear consistent with pneumonia. Recommend interval followup t o document resolution exclude presence of underlying mass lesion. Dictated by: Marnie Nowak M.D. on 10/26/2016 at 19:31 Approved by: Marnie Nowak M.D. on 10/26/2016 at 19:36
[2016-10-26] MEDS: ALPRAZolam 0.5 mg Tablet PO PRN (19:48)
[2016-10-27] MEDS ORDERED: KCl 40 mEq/100 mL Premix (K 3 - 3.7 & Creat < 2) IV ONE (00:35)
[2016-10-27 03:42] VITALS: BP 144/81; PULSE 94; RESP 22; O2SAT 96
[2016-10-27] MEDS: Ondansetron 2 mg/mL 2 mL Inj IVPUSH PRN (03:55)
[2016-10-27 06:52] LABS: Mean Corpuscular Hemoglobin 30.5 pg (27.0-35.0)
--- NOTE | 2016-10-27 07:55 | NUR ---
Temp/Stool Pt had max temp 38.0. Non pharmacologic interventions of fan and less blankets implemented per pt request. Was stool incontinent x 2-3 times last evening. Stool samples sent to lab. Awaiting orders for stool studies if wanted. Care ongoing
--- NOTE | 2016-10-27 08:54 | PCM.PNMED ---
Subjective Date of Service Oct 27, 2016 Subjective FEELING BETTER, LESS COUGH , DYSPNEA, AND FATIGUE. CHRONIC PAIN. NO FEVERS OR CHILLS. NO NAUSEA. Exam Vital Signs Vital Sign - Last Date Time Temp Pulse Resp B/P Pulse Ox O2 Delivery O2 Flow Rate FiO2 10/27/16 03:42 38.0 94 22 144/81 96 Nasal Cannula 3.00 Intake and Output 10/26/16 10/26/16 10/27/16 Cumulative From/Thru 15:00 23:00 07:00 10/23/16 15:41 - 10/27/16 06:31 Intake Total 917 ml 400 ml 99235 ml Output Total 4600 ml 1750 ml 52728 ml Balance -3683 ml -1350 ml 1756 ml Intake Oral 437 ml 400 ml 3574 ml IV Total 480 ml 85610 ml Output Urine Total 4600 ml 1750 ml 06876 ml # Bowel Movements 2 Exam General: Elderly woman sitting in bed, coughing occasionally HEENT: sclerae anicteric, oral mucosa moist Neck: no JVD Chest: Bibasilar crackles, no dullness Cardiac: S1S2, regular Abdomen: BS normal, non-tender Extremities: Tr+ edema Neuro: A&O, cranial nerves symmetric, motor tone, coordination normal No distress, fluent speech. Anicteric sclera. IVs and Medications Medications Reviewed: Medications were reviewed in detail Lab and Diagnostics Result Diagram: 10/27/16 0610 10/27/16 0610 Microbiology Respiratory viral panel negative Sputum no growth blood cultures no growth Pneumococcus antigen negative X-Rays, CTs and MRIs PROCEDURE: X-RAY CHEST ONE VIEW, PORTABLE ([id number]) IMPRESSION: 1. Confluent airspace opacities in the left mid lung and right infrahilar regions. The findings are nonspecific and the differential includes pneumonia as well as pulmonary contusion. Further evaluation may be obtained with CT if clinically indicated. Dictated by: Jovi Adams M.D. on 10/23/2016 at 18:49 PROCEDURE: CT CERVICAL SPINE WITHOUT CONTRAST ([id number]) IMPRESSION 1. No fracture or subluxation. 2. Multilevel degenerative changes and mild anterolisthesis redemonstrated in the cervical spine as described. 3. Posterior confluent opacities within the visualized right upper lobe are nonspecific and may represent atelectasis, consolidation, or pulmonary contusion. Dictated by: Jovi Adams M.D. on 10/23/2016 at 17:30 PROCEDURE: CT BRAIN WITHOUT CONTRAST ([id number]) IMPRESSION: 1. No acute intracranial abnormality. 2. Mild to moderate chronic white matter small vessel ischemic changes and cerebral volume loss. Dictated by: Jovi Adams M.D. on 10/23/2016 at 17:28 PROCEDURE: X-RAY CHEST ONE VIEW, PORTABLE ([id number]) IMPRESSION: 1. No evidence of pneumothorax. 2. Persistent confluent left basilar opacities peripherally are nonspecific but may represent pneumonia or pulmonary contusion. 3. Pulmonary vascular prominence suggesting mild edema. Dictated by: Jovi Adams M.D. on 10/23/2016 at 19:09 CT Chest 10/26: 1. Mild bilateral pleural effusions with superimposed consolidations as well scattered isolated consolidative opacities as above. Findings appear consistent with pneumonia. Recommend interval followup to document resolution exclude presence of underlying mass lesion. . Assessment & Plan 71-year-old woman with several days of fever dyspnea anorexia and cough complicated by syncopal episode with approximately 4 hours of immobilization on floor. Now day #3 of antibiotics for community-acquired pneumonia. #. Sepsis, acute. Patient presented with BP 69/43, RR 22, WBC 19 K with bandemia, O2 saturation 92% on 2 L. Elevated lactate 2.9. She experienced syncope likely due to dehydration and orthostatic hypotension. Pressures responded to fluid resuscitation. Local infection is pneumonia. She received Aggressive fluid resuscitation with mean arterial pressure greater than 65 mmHg. fever leukocytosis gradually improving. - Reduce IV fluids, and switch to oral hydration - Monitor urinary output to maintain greater than 0.5 ML/KG/HR. She is better clinically. #. Community-acquired pneumonia, acute. Chest x-ray compatible with bilateral pneumonia, possibly pulmonary edema. Overall symptoms appear to be infectious with profound leukocytosis, bandemia and elevated procalcitonin. Respiratory viral panel is negative. MRSA swab is negative. She continues to require 3 L nasal cannula oxygen with O2 sat 92-95% - Ceftriaxone plus azithromycin x 5 days - Titrate Oxygen off , as tolerated - IV hydration, and push by mouth hydration - Mobilized patient to enhance pulmonary toilet CT chest acceptable, continue current Abx. #. Acute diastolic congestive heart failure. ProBNP is 1144 on admission. Chest x-ray also compatible with bilateral pulmonary congestion. Likely diastolic CHF due to stress of respiratory infection. - Reduce IV fluids and Initiate oral Lasix diuresis now that she is in recovery phase - Control blood pressure - She appears compensated clinically. #t. Acute kidney injury. Resolved. #. Rhabdomyolysis, acute. Resolved. #. Chronic lower back pain, chronic opioid dependent. Also fibromyalgia. - Continue oral oxycodone, parenteral opioid. - Continue her duloxetine, tizanidine and pregabalin; monitor for signs of polypharmacy and toxic encephalopathy #. Anxiety disorder, chronic. - Continue her usual 0.5 mg 3 times a day alprazolam. Venous thromboembolism: Subcutaneous Lovenox Disposition:PT eval today, probable discharge 10/28. Pain Evaluation: Adequate Pain Control GI Prophylaxis: Not indicated VTE Prophylaxis: Sub-Q Enoxaparin VTE Mechanical Devices: Intermittant Pneumatic CD Resuscitation Status: CPR: Attempt Resuscitation Time spent 30 min Bob Cruz MD Oct 27, 2016 08:54
[2016-10-27 09:58] VITALS: BP 138/65; PULSE 92; RESP 20; O2SAT 93
[2016-10-27] MEDS: cefTRIAXone Inj 2,000 MG in Dextrose 5% Minibag Plus 50 ML IV SCH (10:13)
[2016-10-27] MEDS: DULoxetine 30 mg DR Capsule PO SCH (10:13)
[2016-10-27] MEDS: Lactobacillus Rhamnosus 10 Bil Unit Capsule PO SCH ×3 (10:14→17:27)
[2016-10-27] MEDS: Potassium Chloride 20 mEq SR Tablet PO SCH ×2 (10:14→20:22)
--- NOTE | 2016-10-27 12:02 | NUR ---
[facility] signed Estrella Schilling LMSW, ACM
--- NOTE | 2016-10-27 12:03 | NUR ---
Social Work: Continued Discharge Planning Data & Assessment: Sap Bw Bi Developer met with pt at bedside. Sap Bw Bi Developer reviewed PT recommendation for SNF and patient declined SNF. SW offered HH, but patient also declined HH. Pt lives at home with spouse and wants to discharge home with no services. SW will continue to follow and assist patient with discharge planning needs. Plan: Anticipate discharge home via POV. Sap Bw Bi Developer will continue to follow. Estrella Schilling LMSW, MELISA
[2016-10-27 12:25] VITALS: BP 135/68; PULSE 82; RESP 24; O2SAT 94
--- NOTE | 2016-10-27 15:57 | NUR ---
Activity She has slept all day only waking when staff wake her up to give her medicine or to work with Physical Therapy (PT). Per PT, they were able to get her up with 1 person assist and had her take two steps before she requested to go back to bed saying she was too tired to sit up in a chair. Care continues.
--- NOTE | 2016-10-27 18:36 | NUR ---
Rash on Back A red rash was noted all over her back this afternoon. She said it didn't itch, but that she was "aware of it." Notified Dr. Cruz who ordered Hydrocortisone cream to be applied twice a day. Also, called pharmacy for a medication check. No medications causing this reaction were really noted since she has been taking them for several days without issue. However, she did receive a one time dose of IV Potassium last night. Has been receiving Potassium by mouth for several days. The pharmacy staff said to monitor the rash and IV potassium if given again. Care continues.
[2016-10-27 19:55] VITALS: BP 159/71; PULSE 107; RESP 22; O2SAT 95
[2016-10-27 20:20] VITALS: BP 126/65; PULSE 87; RESP 20; O2SAT 92
[2016-10-28 03:36] VITALS: BP 134/77; PULSE 94; RESP 20; O2SAT 92
--- NOTE | 2016-10-28 04:14 | NUR ---
Stool: Pt. passed one, loose, green, moderate stool at start of shift. Pt. concerned regarding stool. Pt. admits to only passing one stool per day typically. Denies nausea, denies abdominal pain. Physician notified of findings, no new orders received.
[2016-10-28 08:36] VITALS: BP 115/87; PULSE 95; RESP 16; O2SAT 94
--- NOTE | 2016-10-28 08:50 | PCM.PNMED ---
Subjective Date of Service Oct 28, 2016 Subjective She has a headache today. Less dyspnea. No fevers or chills. No fevers or chest pain. No nausea or diarrhea. Exam Vital Signs Vital Sign - Last Date Time Temp Pulse Resp B/P Pulse Ox O2 Delivery O2 Flow Rate FiO2 10/28/16 08:36 37.4 95 16 115/87 94 Nasal Cannula 4.00 Intake and Output 10/27/16 10/27/16 10/28/16 Cumulative From/Thru 15:00 23:00 07:00 10/23/16 15:41 - 10/28/16 06:41 Intake Total 244 ml 837 ml 1224 ml 38909 ml Output Total 1200 ml 600 ml 80260 ml Balance 244 ml -363 ml 624 ml 2261 ml Intake Oral 837 ml 1224 ml 5635 ml IV Total 244 ml 60334 ml Output Urine Total 1200 ml 600 ml 11309 ml # Bowel Movements 1 1 4 Exam NAD Anicteric sclera fluent speech Lungs clear heart regular, no murmur Abdomen soft, NT No edema. No skin rash. IVs and Medications Medications Reviewed: Medications were reviewed in detail Lab and Diagnostics Result Diagram: 10/27/16 0610 10/27/16 0610 Microbiology Respiratory viral panel negative Sputum no growth blood cultures no growth Pneumococcus antigen negative X-Rays, CTs and MRIs PROCEDURE: X-RAY CHEST ONE VIEW, PORTABLE ([id number]) IMPRESSION: 1. Confluent airspace opacities in the left mid lung and right infrahilar regions. The findings are nonspecific and the differential includes pneumonia as well as pulmonary contusion. Further evaluation may be obtained with CT if clinically indicated. Dictated by: Jovi Adams M.D. on 10/23/2016 at 18:49 PROCEDURE: CT CERVICAL SPINE WITHOUT CONTRAST ([id number]) IMPRESSION 1. No fracture or subluxation. 2. Multilevel degenerative changes and mild anterolisthesis redemonstrated in the cervical spine as described. 3. Posterior confluent opacities within the visualized right upper lobe are nonspecific and may represent atelectasis, consolidation, or pulmonary contusion. Dictated by: Jovi Adams M.D. on 10/23/2016 at 17:30 PROCEDURE: CT BRAIN WITHOUT CONTRAST ([id number]) IMPRESSION: 1. No acute intracranial abnormality. 2. Mild to moderate chronic white matter small vessel ischemic changes and cerebral volume loss. Dictated by: Jovi Adams M.D. on 10/23/2016 at 17:28 PROCEDURE: X-RAY CHEST ONE VIEW, PORTABLE ([id number]) IMPRESSION: 1. No evidence of pneumothorax. 2. Persistent confluent left basilar opacities peripherally are nonspecific but may represent pneumonia or pulmonary contusion. 3. Pulmonary vascular prominence suggesting mild edema. Dictated by: Jovi Adams M.D. on 10/23/2016 at 19:09 CT Chest 10/26: 1. Mild bilateral pleural effusions with superimposed consolidations as well scattered isolated consolidative opacities as above. Findings appear consistent with pneumonia. Recommend interval followup to document resolution exclude presence of underlying mass lesion. . Assessment & Plan 1. CAP (pna), POA. Continue ceftriaxone, azithro and recheck WBC. 2. Septic shock, POA. Resolved. 3. GI and DVT prophylaxis, continue. 4. Fibromyalgia, POA. resume usual medications in AM when improved. Full code, inpt status, over 2 nights anticipated. Will have PT evaluate for discharge planning. Pain Evaluation: Adequate Pain Control GI Prophylaxis: Not indicated VTE Prophylaxis: Sub-Q Enoxaparin VTE Mechanical Devices: Intermittant Pneumatic CD Resuscitation Status: CPR: Attempt Resuscitation Time spent 30 minutes Bob Cruz MD Oct 28, 2016 08:50
[2016-10-28] MEDS ORDERED: 0.9% Sodium Chloride 250 ML ONE (08:58)
[2016-10-28] MEDS: cefTRIAXone Inj 2,000 MG in Dextrose 5% Minibag Plus 50 ML IV SCH (09:00)
[2016-10-28] MEDS: Potassium Chloride 20 mEq SR Tablet PO SCH ×2 (09:11→21:22)
[2016-10-28] MEDS: DULoxetine 30 mg DR Capsule PO SCH (09:12)
[2016-10-28] MEDS: Lactobacillus Rhamnosus 10 Bil Unit Capsule PO SCH ×3 (09:14→17:41)
[2016-10-28 09:18] LABS: Mean Corpuscular Hemoglobin 30.6 pg (27.0-35.0); Mean Corpuscular Volume 96.1 fL (81-100)
[2016-10-28 11:45] VITALS: BP 100/64; PULSE 92; RESP 18; O2SAT 93
--- NOTE | 2016-10-28 19:28 | NUR ---
Activity Pt worked with PT today which went well per report, see PT note for more details. Discussed deep breathing/coughing exercises/pneumonia at length today with Pt and , discussed IS with MD, order placed for IS which RT set Pt up with, Pt verbalized that she was using the IS when asked prior to shift change.
[2016-10-28 21:16] VITALS: BP 134/65; PULSE 91; O2SAT 96
[2016-10-29 00:51] VITALS: BP 115/35; PULSE 88; RESP 20; O2SAT 96
[2016-10-29 03:00] VITALS: BP 147/84; PULSE 86; RESP 20; O2SAT 93
[2016-10-29] MEDS: ALPRAZolam 0.5 mg Tablet PO PRN (03:06)
--- NOTE | 2016-10-29 03:20 | NUR ---
Respiratory: SpO2: 96-97% on 4L nasal cannula at start of shift. Pt. denies SOB. Oxygen titrated down to 3L nasal cannula. Upon reassessment, SpO2: 96% on 3L nasal cannula. Oxygen further titrated down to 2L nasal cannula. Pt. tolerating 2L nasal cannula well, denies SOB, SpO2: 92-93%.
--- NOTE | 2016-10-29 08:07 | PCM.PNMED ---
Subjective Date of Service Oct 29, 2016 Subjective Headache. Less dyspnea. Less diarrhea. No cough. Still weak. Wilde in. Exam Vital Signs Vital Sign - Last Date Time Temp Pulse Resp B/P Pulse Ox O2 Delivery O2 Flow Rate FiO2 10/29/16 03:00 37.0 86 20 147/84 93 2.00 10/29/16 00:51 Nasal Cannula Intake and Output 10/28/16 10/28/16 10/29/16 Cumulative From/Thru 15:00 23:00 07:00 10/23/16 15:41 - 10/29/16 05:41 Intake Total 1397 ml 600 ml 09548 ml Output Total 1050 ml 500 ml 27837 ml Balance 347 ml 100 ml 2708 ml Intake Oral 1337 ml 600 ml 7572 ml IV Total 60 ml 68208 ml Output Urine Total 1050 ml 500 ml 06530 ml # Bowel Movements 1 1 6 Exam NAD Anicteric sclera fluent speech Lungs clear heart regular, no murmur Abdomen soft, NT No edema. No skin rash. No confusion. Normal joints. IVs and Medications Medications Reviewed: Medications were reviewed in detail Lab and Diagnostics Result Diagram: 10/28/16 0900 10/28/16 0900 Microbiology Respiratory viral panel negative Sputum no growth blood cultures no growth Pneumococcus antigen negative X-Rays, CTs and MRIs PROCEDURE: X-RAY CHEST ONE VIEW, PORTABLE ([id number]) IMPRESSION: 1. Confluent airspace opacities in the left mid lung and right infrahilar regions. The findings are nonspecific and the differential includes pneumonia as well as pulmonary contusion. Further evaluation may be obtained with CT if clinically indicated. Dictated by: Jovi Adams M.D. on 10/23/2016 at 18:49 PROCEDURE: CT CERVICAL SPINE WITHOUT CONTRAST ([id number]) IMPRESSION 1. No fracture or subluxation. 2. Multilevel degenerative changes and mild anterolisthesis redemonstrated in the cervical spine as described. 3. Posterior confluent opacities within the visualized right upper lobe are nonspecific and may represent atelectasis, consolidation, or pulmonary contusion. Dictated by: Jovi Adams M.D. on 10/23/2016 at 17:30 PROCEDURE: CT BRAIN WITHOUT CONTRAST ([id number]) IMPRESSION: 1. No acute intracranial abnormality. 2. Mild to moderate chronic white matter small vessel ischemic changes and cerebral volume loss. Dictated by: Jovi Adams M.D. on 10/23/2016 at 17:28 PROCEDURE: X-RAY CHEST ONE VIEW, PORTABLE ([id number]) IMPRESSION: 1. No evidence of pneumothorax. 2. Persistent confluent left basilar opacities peripherally are nonspecific but may represent pneumonia or pulmonary contusion. 3. Pulmonary vascular prominence suggesting mild edema. Dictated by: Jovi Adams M.D. on 10/23/2016 at 19:09 CT Chest 10/26: 1. Mild bilateral pleural effusions with superimposed consolidations as well scattered isolated consolidative opacities as above. Findings appear consistent with pneumonia. Recommend interval followup to document resolution exclude presence of underlying mass lesion. . Assessment & Plan 1. CAP (pna), POA. Continue ceftriaxone, azithro and recheck WBC. She is requiring less O2. Check CXR today. 2. Acute respiratory failure with hypoxia, POA. Continue O2 and wean as able. 2. Septic shock, POA. Resolved. 3. DVT prophylaxis, continue. Stop GI prophylaxis. 4. Fibromyalgia, POA. resume usual medications in AM when improved. 5. Deconditioned. PT eval and dc planning. Full code, inpt status, over 2 nights anticipated. Will have PT evaluate for discharge planning. Pain Evaluation: Adequate Pain Control GI Prophylaxis: Not indicated VTE Prophylaxis: Sub-Q Enoxaparin VTE Mechanical Devices: Intermittant Pneumatic CD Resuscitation Status: CPR: Attempt Resuscitation Time spent 30 min Bob Cruz MD Oct 29, 2016 08:07
[2016-10-29] MEDS: Lactobacillus Rhamnosus 10 Bil Unit Capsule PO SCH ×3 (08:20→18:03)
[2016-10-29] MEDS: cefTRIAXone Inj 2,000 MG in Dextrose 5% Minibag Plus 50 ML IV SCH (08:20)
[2016-10-29] MEDS: Potassium Chloride 20 mEq SR Tablet PO SCH ×2 (08:21→20:26)
[2016-10-29] MEDS: DULoxetine 30 mg DR Capsule PO SCH (08:21)
[2016-10-29 08:47] VITALS: BP 136/102; PULSE 98; RESP 18; O2SAT 92
--- NOTE | 2016-10-29 11:55 | DRSVH ---
PROCEDURE: X-RAY CHEST ONE VIEW, PORTABLE ([id number]) INDICATIONS: dyspnea TECHNIQUE: One view of the chest was acquired. COMPARISON: [facility], CR, XR CHEST 1VW (PORTABLE), 10/23/2016, 18:48. FINDINGS: Surgical changes and devices: Right-sided central venous catheter is present with distal tip overlyin g the distal SVC. Lungs and pleura: There is a mildly improved, yet persistent appearance of increased pulmonary vascul arity as well as blunting of the costophrenic angles bilaterally. Mediastinum: Mediastinal contours appear normal. Heart size is normal. Bones and chest wall: No suspicious bony lesions. Overlying soft tissues appear unremarkable. IMPRESSION: Improved, although persistent appearance of increased pulmonary vascularity. Underlying a reas of atelectasis and/or pneumonia cannot be excluded. Dictated by: Marnie Nowak M.D. on 10/29/2016 at 11:53 Approved by: Marnie Nowak M.D. on 10/29/2016 at 11:53
[2016-10-29 12:45] LABS: Mean Corpuscular Hemoglobin 30.3 pg (27.0-35.0); Mean Corpuscular Volume 96.9 fL (81-100)
[2016-10-29 15:07] VITALS: PULSE 102; PULSE 104; PULSE 96
--- NOTE | 2016-10-29 16:04 | NUR ---
Social Work Note - Continued Discharge: D/A: The Pt is a 71 y/o female that is now on day 6 of hospitalized for sepsis, pneumonia. PT eval completed, recommending SNF. The Pt continues to deny need for SNF services but is agreeable for HH. List provided, no preference given. SW referred to rotating calendar, referral to [facility] placed via voicemail. Access given. SW will continue to follow. P: The Pt is not medically stable for discharge, likely to discharge home with [facility] (RN/PT) when medically ready. SW will continue to follow. Greta Gaston, CROZE CUTTER HELPER Trauma Counsellor DILSHAD Montelongo
[2016-10-29 17:00] VITALS: BP 129/66; PULSE 95; RESP 19; O2SAT 93
--- NOTE | 2016-10-29 18:23 | NUR ---
DC Wilde/ Activity Order to DC Wilde cath, pt made aware. Procedure explained. Wilde discontinued in AM. Pt tolerated well. Pt able to ambulate around nurse unit on RA, pt desating to mid 80s however recovered to 94% with rest. Pt able to walk about about 300feet then stating having anxiety and wanting to go back to room. Pt stating feeling after resting in room.
[2016-10-29 20:19] VITALS: BP 130/74; PULSE 90; RESP 20; O2SAT 94
[2016-10-30 03:27] VITALS: BP 134/90; PULSE 83; RESP 20; O2SAT 90
--- NOTE | 2016-10-30 04:19 | NUR ---
Oxygen: SpO2: 93-94% on room air for majority of shift, however as pt. began to sleep more soundly SpO2 dropped to 89% on room air. Pt. placed on 1L nasal cannula during sleep, pt. SpO2 increased to 92% on 1L nasal cannula. Pt. tolerating well. Denies SOB.
[2016-10-30 08:11] VITALS: BP 141/60; PULSE 85; RESP 20; O2SAT 94
[2016-10-30] MEDS: cefTRIAXone Inj 2,000 MG in Dextrose 5% Minibag Plus 50 ML IV SCH (08:20)
[2016-10-30] MEDS: Lactobacillus Rhamnosus 10 Bil Unit Capsule PO SCH (08:22)
[2016-10-30] MEDS: DULoxetine 30 mg DR Capsule PO SCH (09:30)
[2016-10-30] MEDS: Potassium Chloride 20 mEq SR Tablet PO SCH (09:43)
[2016-10-30 11:07] VITALS: BP 116/54; PULSE 85; RESP 20; O2SAT 93
--- NOTE | 2016-10-30 11:19 | PCM.DIMED ---
Discharge Instructions Date of Service Oct 30, 2016 Dates of Hospitalization Oct 23, 2016 at 19:12 Discharge Diagnosis Discharge Diagnosis 1. CAP (pna), POA. Improved. 2. Acute respiratory failure with hypoxia, Resolved.. 3. Septic shock. Resolved. 4. Fibromyalgia. Diet Heart Healthy Activity Limited until seen by PCP Patient Instructions Follow-up Provider: Marquita Ennis Follow-up with PCP in: 1 week Bob Cruz MD Oct 30, 2016 11:19
[2016-10-30] MEDS ORDERED: [UNRECOGNIZED DRUG - CODE] PO (11:20)
--- NOTE | 2016-10-30 12:14 | NUR ---
Discharge of patient Reviewed discharge instruction with patient and patient's . both verbalized understanding. Pt discharged via wheelchair with prescription and instructions. IV previously discontinued. Pt left hospital with to home with home health care.
--- NOTE | 2016-10-30 12:39 | NUR ---
Social Work Note: Discharge Data& Assessment: EMR reviewed. Per pt is medically ready to discharge home via POV with [facility] to follow for PT and RN. Bernie Prater is a 71 year old female admitted on 10/23/2016 for sepsis and pneumonia. Per pt is medically improved and ready for discharge. SW notified [facility] from [facility] of pt discharge. SW met with pt and pt at bedside to confirm discharge plan and assess for any unmet needs. Pt and pt deny any other needs. All updated and agreeable to plan. No other discharge needs identified. Plan: Per pt is medically improved and ready to discharge home via POV with [facility] to follow for PT and RN to follow.Pt and pt deny any other needs. All updated and agreeable to plan. No other discharge needs identified. DILSHAD Schmidt
--- NOTE | 2016-10-30 16:09 | PCM.DC.MED ---
Discharge Summary Date of Service Oct 30, 2016 Dates of Hospitalization Date of Hospital Admission Oct 23, 2016 at 19:12 Date of Discharge: Oct 30, 2016 Providers: Admitting Physician: Shoaib Cruz MD Primary Care Physician: Marquita Ennis Attending Physician: Shoaib Cruz MD Diagnosis at Time of Discharge Diagnosis at Time of Discharge 1. CAP (pna), POA. Improved. 2. Acute respiratory failure with hypoxia, Resolved.. 3. Septic with SIRS criteria and pneumonia. Resolved. 4. Fibromyalgia. Consultations None Procedures XRay, CTs & MRIs PROCEDURE: X-RAY CHEST ONE VIEW, PORTABLE ([id number]) IMPRESSION: 1. Confluent airspace opacities in the left mid lung and right infrahilar regions. The findings are nonspecific and the differential includes pneumonia as well as pulmonary contusion. Further evaluation may be obtained with CT if clinically indicated. Dictated by: Jovi Adams M.D. on 10/23/2016 at 18:49 PROCEDURE: CT CERVICAL SPINE WITHOUT CONTRAST ([id number]) IMPRESSION 1. No fracture or subluxation. 2. Multilevel degenerative changes and mild anterolisthesis redemonstrated in the cervical spine as described. 3. Posterior confluent opacities within the visualized right upper lobe are nonspecific and may represent atelectasis, consolidation, or pulmonary contusion. Dictated by: Jovi Adams M.D. on 10/23/2016 at 17:30 PROCEDURE: CT BRAIN WITHOUT CONTRAST ([id number]) IMPRESSION: 1. No acute intracranial abnormality. 2. Mild to moderate chronic white matter small vessel ischemic changes and cerebral volume loss. Dictated by: Jovi Adams M.D. on 10/23/2016 at 17:28 PROCEDURE: X-RAY CHEST ONE VIEW, PORTABLE ([id number]) IMPRESSION: 1. No evidence of pneumothorax. 2. Persistent confluent left basilar opacities peripherally are nonspecific but may represent pneumonia or pulmonary contusion. 3. Pulmonary vascular prominence suggesting mild edema. Dictated by: Jovi Adams M.D. on 10/23/2016 at 19:09 CT Chest 10/26: 1. Mild bilateral pleural effusions with superimposed consolidations as well scattered isolated consolidative opacities as above. Findings appear consistent with pneumonia. Recommend interval followup to document resolution exclude presence of underlying mass lesion. . Cardiac Echo Impression None Invasive Procedures None Brief History 71 female ill for several days with a cough, productive as well as progressive anorexia and weakness. She got up from bed and fell on floor this AM. Found 4 hours later. No recall of event. EMS brought her to ED, where she was hypotensive and received 2 L NS with persistent hypotension. A right IJ central line was placed and norepinephrine was started. MAP is now 65. No nausea, vomiting, diarrhea. No abdomen pauin. No dyspnea or chest pain. No fevers, chills or rigors. She denies fevers or chills, no rigors. No recent dyspnea, pleuritic pain, hemoptysis, or sustained chest pain. No abdomen pain. Hospital Course 1. CAP (pna), POA. Continue ceftriaxone, azithro and recheck WBC. She is requiring less O2. Check CXR today. 2. Acute respiratory failure with hypoxia, POA. Continue O2 and wean as able. 2. Septic shock, POA. Resolved. 3. DVT prophylaxis, continue. Stop GI prophylaxis. 4. Fibromyalgia, POA. resume usual medications in AM when improved. 5. Deconditioned. PT eval and dc planning. Full code, inpt status, over 2 nights anticipated. Hospital course: pt admitted and treated for presumed CAP pna. She was treated with standard Abx and improved over the next several days. She had intermittent fevers which resolved. Her oxygen need also improved and she was able to wean off oxygen. Her leukocytosis also improved. She initially was hypotensive and needed aggressive fluid resuscitation. Exam Vital Signs (Last) Date Time Temp Pulse Resp B/P Pulse Ox O2 Delivery O2 Flow Rate FiO2 10/30/16 11:07 37.0 85 20 116/54 93 Room Air 10/29/16 17:00 2.00 Exam patient seen and examined on day of discharge Test 10/23/16 15:58 10/23/16 16:58 10/23/16 17:03 10/24/16 08:30 Neutrophils (%) (Auto) 62% (40-74) Lymphocytes (%) (Auto) 6% (14-46) Monocytes (%) (Auto) 2% (4-12) Eosinophils (%) (Auto) 0% (0-5) Basophils (%) (Auto) 0% (0-3) Band Neutrophils % 30% (1-5) Hold Purple Top Tube Received (Received) Prothrombin Time 10.6sec (8.1-12.5) Prothromb Time International Ratio 0.99ratio Hold Blue Top Tube Received (Received) Magnesium Level 2.1mg/dL (1.6-2.6) Troponin T < 0.010ug/L (0.0-0.011) Pro-B-Type Natriuretic Peptide 1144pg/mL (0-301) Hold Red Top Tube Received (Received) Hold [place] Top Tube Received (Received) Urine Legionella pneumophilia Ag Negative (Negative) Urine Color Dark yellow (YELLOW) Urine Appearance Hazy (CLEAR,HAZY) Urine pH 5.5 (5.0-8.0) Urine Specific [place] 1.025 (1.003-1.035) Urine Protein 30mg/dL (NEG,TRACE) Urine Glucose (UA) Negativemg/dL (NEGATIVE) Urine Ketones Negativemg/dL (NEGATIVE) Urine Occult Blood Small (NEGATIVE) Urine Nitrite Negative (NEGATIVE) Urine Bilirubin Negative (NEGATIVE) Urine Urobilinogen Normalmg/dL (NORMAL) Urine Leukocyte Esterase Negative (NEGATIVE) Urine RBC 0-2/hpf (0-2) Urine WBC 0-5/hpf (0-5) Urine Epithelial Cells Few/hpf (NONE-MOD) Urine Crystals None seen (NONE SEEN) Urine Bacteria Few/hpf (NONE-FEW) Urine Hyaline Casts None/lpf (NONE) Urine Granular Casts Occasional (NONE SEEN) Urine Waxy Casts None seen (NONE SEEN) Urine Red Blood Cell Casts None seen (NONE SEEN) Urine White Blood Cell Casts None seen (NONE SEEN) Urine Mucus None seen (None Seen) Urine Trichomonas None seen (NONE SEEN) Urine Yeast None (NONE SEEN) Urinalysis Comment Amorphous sediment Urine Culture Reflexed Not indicated Lactic Acid Level 0.9mmol/L (0.4-2.0) Total Creatine Kinase 56787N/L (21-215) Test 10/27/16 06:10 10/28/16 09:00 10/29/16 12:15 Procalcitonin 0.69ng/mL (0.00-0.08) Total Bilirubin 0.3mg/dL (0.0-1.2) Aspartate Amino Transf (AST/SGOT) 73U/L (0-50) Alanine Aminotransferase (ALT/SGPT) 65U/L (0-32) Alkaline Phosphatase 107U/L (25-165) Total Protein 5.8g/dL (6.4-8.4) Albumin 2.8g/dL (3.4-5.0) White Blood Count 17.8th/mm3 (3.8-10.1) Red Blood Count 4.19mil/mm3 (3.90-5.20) Hemoglobin 12.7g/dL (12.0-15.6) Hematocrit 40.6% (35.0-46.0) Mean Corpuscular Volume 96.9fL (81-100) Mean Corpuscular Hemoglobin 30.3pg (27.0-35.0) Mean Corpuscular Hemoglobin Concent 31.3% (32.0-37.0) Red Cell Distribution Width 15.5% (12.3-15.4) Platelet Count 446bil/L (150-400) Sodium Level 141mEq/L (134-144) Potassium Level 3.9mEq/L (3.5-5.2) Chloride Level 97mEq/L (97-108) Carbon Dioxide Level 22mmol/L (18-29) Blood Urea Nitrogen 9mg/dL (8-27) Creatinine 0.71mg/dL (0.57-1.00) Estimat Glomerular Filtration Rate 116mL/min (>59) Glucose Level 117mg/dL (60-99) Calcium Level 10.0mg/dL (8.5-10.1) Microbiology Results Respiratory viral panel negative Sputum no growth blood cultures no growth Pneumococcus antigen negative Discharge Medications Discharge Medications Aspirin Chew (Aspirin Chew) 81 Mg Chew 81 MG PO DAILY (Reported) Cefuroxime Axetil (Ceftin) 250 Mg/5 Ml Suspension 50 MG PO BID Prescribed by: SHOAIB CRUZ MD Cholecalciferol (Vitamin D3) (Vitamin D3) 1,000 Unit Tab.chew 1,000 UNIT PO DAILY (Reported) Docusate Sodium (Docusate Sodium) 250 Mg Capsule 250 MG PO BID (Reported) Duloxetine (Cymbalta) 60 Mg Capsule.dr 60 MG PO DAILY (Reported) Fish Oil/Borage/Flax/Om3,6,9#1 ([place] 3-6-9 Complex Softgel) 400 Mg Capsule 400 MG PO DAILY (Reported) Pregabalin (Lyrica) 75 Mg Capsule 75 MG PO TID (Reported) Tizanidine (Tizanidine) 4 Mg Capsule 4 MG PO BID (Reported) Topiramate (Topiramate) 25 Mg Tablet 25 MG PO HS (Reported) As needed Alprazolam (Alprazolam) 0.5 Mg Tablet 0.5 MG PO Q6H PRN PRN For Anxiety ( Reported) Hydrocodone-Acetaminophen 10-325 mg (Hydrocodone-Acetaminophen 10-325 mg) 1 Each Tablet 1 TABLET PO Q4H PRN PRN For Pain (Reported) Followup Plan Disposition: Home with home health services. Discharge Diet: Heart Healthy Discharge Activity: Limited until seen by PCP Follow-up Provider: Marquita Ennis Follow-up with PCP in: 1 week Time spent 45 minutes Shoaib Cruz MD Oct 30, 2016 16:09
== END 2016-10-30 12:30 | disposition home health service (06) | DRG 871 ==
LOC: SED 15:38 → CCU 19:12 → PCC 10-24 07:50
PROVIDERS: ADMIT Hospitalist; ATTEND Hospitalist
PROC: 02HV33Z Insertion of Infusion Device into Superior Vena Cava, Percutaneous Approach (ICD-10-PCS; principal; 2016-10-23)
DX: A41.9 Sepsis, unspecified organism (principal); R65.21 Severe sepsis with septic shock; J18.9 Pneumonia, unspecified organism; I50.31 Acute diastolic (congestive) heart failure; J96.01 Acute respiratory failure with hypoxia; N17.9 Acute kidney failure, unspecified; M62.82 Rhabdomyolysis; F11.20 Opioid dependence, uncomplicated; T40.2X5A Adverse effect of other opioids, initial encounter; M79.7 Fibromyalgia; M19.90 Unspecified osteoarthritis, unspecified site; E86.0 Dehydration; G89.4 Chronic pain syndrome; Z87.891 Personal history of nicotine dependence; Z79.82 Long term (current) use of aspirin